=== PATIENT | male | born 1985 | race Caucasian/White ===

== ENCOUNTER 2017-02-14 22:10 | Emergency (ER) | payer OTHER ==
[~2017-02-14] VITALS: Ht 175.3 cm; Wt 134.1 kg
[~2017-02-14 22:10] MED LIST: GLBR5T PO; INSU100V7 SUBQ; LISI-567 PO; METF-496 PO; METO10TA3 PO; OMEP40CA36 PO
[2017-02-14 22:20] VITALS: BP 148/81; PULSE 78; RESP 18; O2SAT 100
--- NOTE | 2017-02-14 22:26 | ED.REPORT ---
HPI-General Illness Date of Service Feb 14, 2017 ED Provider: Jose Maria Torres MD Pt is a 31 year old male with a hx of DM and HTN presenting to the ED complaining of 7/10 right foot pain after getting it caught in a blanket and twisting it last night. Pt states that he heard a pop. He denies any other symptoms at this time. Nursing Notes Stated Complaint: RT FOOT INJURY Chief Complaint: Extremity Trauma Nursing Notes Reviewed: Yes Allergies: Coded Allergies: aloe vera (Verified Allergy, Unknown, 12/02/15) amoxicillin (Verified Allergy, Unknown, 02/14/17) Scheduled Glyburide (Glyburide) 5 Mg Tab 5 MG PO BIDAC Insulin Glargine (Lantus U100 Insulin Vial) 100 Unit/Ml Vial 50 UNITS SUBQ DAILY Lisinopril (Lisinopril) 20 Mg Tablet 20 MG PO DAILY Metformin ER (Metformin ER) 1,000 Mg Tablet 2,000 MG PO HS Metoclopramide (Metoclopramide) 10 Mg Tablet 10 MG PO TID Omeprazole (Omeprazole) 40 Mg Capsule.dr 40 MG PO DAILY General Time Seen by MD: 22:25 Chief Complaint Other (Right foot pain) Hx Obtained From: Patient Arrived By: Walk-in Sudden in Onset?: Yes Onset Occurred: Yesterday Symptom Duration: Since onset Location: : Foot right Quality: Painful Severity: Current: Pain level 7 out of 10 Severity: Maximum: Severe Recent Healthcare: No recent doctor visit, No recent hospitalization Similar Sx Previous: No Past Medical History Past Medical History Reports: Diabetes mellitus, Hypertension Past Surgical History Left knee surgery Smoking History Never Smoker Social History Alcohol Use: Denies alcohol use Drug Use: THC Ambulatory Status Independent Review of Systems Full Review of Systems Constitutional: Denies: Fever Respiratory: Denies: Shortness of breath, Wheezing Cardiovascular: Denies: Chest pain GI: Denies: Abdominal pain, Vomiting Musculoskeletal: Reports: Extremity pain, Extremity swelling Complete sys rev & neg: except as marked. Physical Exam Nursing note and vitals reviewed. Constitutional: Well-developed, well-nourished. Not diaphoretic. Head: Normocephalic and atraumatic. Mouth/Throat: Oropharynx is clear and moist. No oropharyngeal exudate. Eyes: EOM are normal. Pupils are equal, round, and reactive to light. Neck: Supple, no tracheal deviation. Cardiovascular: Normal rate, regular rhythm. Equal and intact distal pulses throughout. Pulmonary/Chest: Effort normal and breath sounds normal. No respiratory distress. Abdominal: Soft. No distension. There is no tenderness, rebound, or guarding. Bowel sounds present. Musculoskeletal: Range of motion grossly intact, moving all extremities. Tenderness to lateral aspect of right foot. No significant swelling. Compartments soft in distal right leg. No tenderness to proximal 1st metatarsal. Diffuse tenderness lateral right ankle. Mild swelling, no erythema. ROM intact. No proximal fibular tenderness or knee tenderness. Good pulses. Neurological: AOx3. Grossly nonfocal exam. Strength and sensation intact and equal to bilateral upper and lower extremities. Skin: Warm and dry, no rashes or pallor appreciated. Psychiatric: Appropriate mood and affect. Behavior appears normal. Vital Signs Vital Signs Date Time Temp Pulse Resp B/P Pulse Ox O2 Delivery O2 Flow Rate FiO2 02/15/17 00:13 36.9 78 18 148/81 100 Room Air 02/14/17 22:20 36.9 78 18 148/81 100 Room Air Initial VS: Reviewed Interpretation & Diagnostics X-Ray Interpretation Xray Interpretation: IMPRESSION: No fracture Dictated by: Maurizio Murry M.D. on 02/14/2017 at 23:05 IMPRESSION: No fracture Dictated by: Maurizio Murry M.D. on 02/14/2017 at 23:06 X-Ray Ordered: Ankle right, Foot right Interpretation / Wet Read by: Discussed w radiologist Re-Eval/Medical Decision Med Decision/Clinical Course 31 yo M w/ ankle pain. No midfoot TTP. No 5th metatarsal TTP. XR neg for acute fx. Plan d/c w/ careful return precautions, PCP f/u. Time of Eval: 23:06 Patient Status: Condition improved Re-Evaluation/Progress Note: Discussed plan for discarge. Pt understands and agrees. Consultation : Referral / Consult Name: Maurizio Murry MD Call Returned at: 23:03 Note: Radiologist. He will look at the x rays. Counseled Regarding: Diagnosis, Lab results, Need for follow-up, When/why to return to ED Discharge & Departure Primary Impression: Ankle sprain Encounter type: initial encounter Involved ligament of ankle: unspecified ligament Laterality: right Qualified Code: S93.401A - Sprain of unspecified ligament of right ankle, initial encounter Disposition: Home Discharge Condition All VS Reviewed: Yes Condition: Improved Patient Instructions: Ankle Sprain (GEN) Additional Instructions: No fracture was identified on your x-ray; I suspect that your ankle is sprained. Return to the emergency room if you develop any new or worsening symptoms, as it's possible that an occult (undetectable) fracture may be present in rare circumstances. Follow up with your primary care doctor in the next week. Take Ibuprofen as needed for the pain. Thank you for entrusting us with your care today. Referrals: Isabel Iniguez MD (PCP) Rm Hyde MD Attestation Portions of this note were transcribed by Yamila Diggs. I, Dr. Torres personally performed the history, physical exam and medical decision-making; I reviewed and confirmed the accuracy of the information in the transcribed note. Signed by: Jen Blackmon, 02/14/2017 at 2343. copies to: Rm Hyde MD; Isabel Iniguez MD, William B MD Feb 14, 2017 22:26 YAMILA DIGGS Feb 14, 2017 22:38
--- NOTE | 2017-02-14 23:08 | DRSVH ---
PROCEDURE: X-RAY RIGHT ANKLE, MINIMUM THREE VIEWS ([id number]) INDICATIONS: pain TECHNIQUE: 3 views of the ankle were acquired. COMPARISON: None. FINDINGS: Bones: No fractures or dislocations. Ankle mortise is normally aligned. No suspicious bony lesions . Soft tissues: No tibiotalar joint effusion. Achilles tendon appears normal. IMPRESSION: No fracture Dictated by: Maurizio Murry M.D. on 02/14/2017 at 23:05 Approved by: Maurizio Murry M.D. on 02/14/2017 at 23:06
--- NOTE | 2017-02-14 23:09 | DRSVH ---
PROCEDURE: X-RAY RIGHT FOOT COMPLETE, MINIMUM THREE VIEWS ([id number]) INDICATIONS: ankle, foot pain; eval fracture TECHNIQUE: 3 views of the foot were acquired. COMPARISON: None. FINDINGS: Bones: No fractures or dislocations. No suspicious bony lesions. Soft tissues: No tibiotalar joint effusion. Achilles tendon appears normal. IMPRESSION: No fracture Dictated by: Maurizio Murry M.D. on 02/14/2017 at 23:06 Approved by: Maurizio Murry M.D. on 02/14/2017 at 23:08
[2017-02-15 00:13] VITALS: BP 148/81; PULSE 78; RESP 18; O2SAT 100
== END 2017-02-15 00:13 | disposition home or self-care (01) ==
LOC: SED 22:10
DX: S93.491A Sprain of other ligament of right ankle, initial encounter (principal); X50.1XXA Overexertion from prolonged static or awkward postures, initial encounter; Y93.89 Activity, other specified; Y92.89 Other specified places as the place of occurrence of the external cause; Y99.8 Other external cause status; I10 Essential (primary) hypertension; E11.9 Type 2 diabetes mellitus without complications; Z79.4 Long term (current) use of insulin; Z79.84 Long term (current) use of oral hypoglycemic drugs; Z98.890 Other specified postprocedural states; Z88.1 Allergy status to other antibiotic agents; Z88.8 Allergy status to other drugs, medicaments and biological substances